=== PATIENT | male | born 1965 | race Caucasian/White ===

== ENCOUNTER 2016-10-25 18:30 | Emergency (ER) | payer OTHER ==
[~2016-10-25] VITALS: Ht 172.7 cm; Wt 69.1 kg
[2016-10-25] MEDS ORDERED: MOTRIN600 MG PO (21:43)
[2016-10-25] MEDS ORDERED: PERCOCET 5/31 TABLET PO (21:43)
[2016-10-25 22:14] VITALS: BP 121/68
== END 2016-10-25 22:16 | disposition home or self-care (01) ==
LOC: EME 18:30
DX: S42.112A Displaced fracture of body of scapula, left shoulder, initial encounter for closed fracture (principal); V86.59XA Driver of other special all-terrain or other off-road motor vehicle injured in nontraffic accident, initial encounter; Y92.014 Private driveway to single-family (private) house as the place of occurrence of the external cause; F17.200 Nicotine dependence, unspecified, uncomplicated
CPT/HCPCS: 99281; 99284; J1885; J2270